=== PATIENT | female | born 1955 | race Caucasian/White ===

== ENCOUNTER 2017-05-02 14:02 | Emergency (ER) | payer OTHER ==
[~2017-05-02] VITALS: Ht 165.1 cm; Wt 68.8 kg
[2017-05-02] MEDS ORDERED: OSPH1TAB PO (14:21)
[2017-05-02 14:54] LABS: BASO % 0.4 % (0.0-1.0); EOS # 0.2 K/mm3 (0.0-0.50); EOS % 2.5 % (0.0-3.0); LARGE UNSTAINED CELL # 0.1 K/mm3 (0.0-0.4); LARGE UNSTAINED CELL % 1.7 % (0.0-4.0); LYMPH # 1.5 K/mm3 (1.5-4.5); LYMPH % 22.4 % (24.0-44.0); MEAN CORPUSCULAR HEMOGLOBIN 29.6 pg (27.0-33.0); MEAN CORPUSCULAR HGB CONC 33.2 g/dl (32.0-36.5); MEAN CORPUSCULAR VOLUME 89.3 fl (80.0-96.0); MONO # 0.4 K/mm3 (0.0-0.8); MONO % 5.6 % (0.0-5.0); NEUTROPHILS # 4.3 K/mm3 (1.8-7.7); NEUTROPHILS % 67.5 % (36.0-66.0); PLATELET COUNT, AUTOMATED 251 k/mm3 (150-450); RED CELL DISTRIBUTION WIDTH 12.3 % (11.5-14.5); WHITE BLOOD COUNT 6.4 K/mm3 (4.0-10.0)
[2017-05-02 15:21] LABS: ANION GAP 5 MEQ/L (8-16); BLOOD UREA NITROGEN 14 MG/DL (7-18); CALCIUM LEVEL 8.7 MG/DL (8.8-10.2); CARBON DIOXIDE LEVEL 27 MEQ/L (21-32); CHLORIDE LEVEL 107 MEQ/L (98-107); CREATININE FOR GFR 0.82 MG/DL (0.55-1.02); GLOMERULAR FILTRATION RATE > 60.0 (>45); GLUCOSE, FASTING 103 MG/DL (80-110); POTASSIUM SERUM 4.3 MEQ/L (3.5-5.1); SODIUM LEVEL 139 MEQ/L (136-145)
[2017-05-02 15:22] LABS: ERYTHROCYTE SEDIMENTATION RATE 34 mm/hr (0-30)
[2017-05-02] MEDS ORDERED: DOXYCYCLINE HYCLATE 100 MG TAB PO ONE (15:30)
[2017-05-02 15:32] VITALS: BP 140/79
[2017-05-02] MEDS ORDERED: DOXY100C37 PO (15:32)
[2017-05-08 00:15] LABS: Lyme Disease IgG Ab 18 kDa Ban Absent (.); Lyme Disease IgG Ab 23 kDa Ban Absent (.); Lyme Disease IgG Ab 28 kDa Ban Absent (.); Lyme Disease IgG Ab 30 kDa Ban Present (.); Lyme Disease IgG Ab 39 kDa Ban Absent (.); Lyme Disease IgG Ab 41 kDa Ban Present (.); Lyme Disease IgG Ab 45 kDa Ban Absent (.); Lyme Disease IgG Ab 58 kDa Ban Absent (.); Lyme Disease IgG Ab 66 kDa Ban Absent (.); Lyme Disease IgG Ab 93 kDa Ban Absent (.); Lyme Disease IgG West Blot Int Negative (.); Lyme Disease IgM Ab 23 kDa Ban Absent (.); Lyme Disease IgM Ab 39 kDa Ban Absent (.); Lyme Disease IgM Ab 41 kDa Ban Present (.); Lyme Disease IgM Ab Quantitati 5.12 index (0.00-0.79); Lyme Disease IgM West Blot Int Negative (.)
== END 2017-05-02 15:45 | disposition home or self-care (01) ==
LOC: M ED 14:02
DX: A69.20 Lyme disease, unspecified (principal); Z87.891 Personal history of nicotine dependence

== ENCOUNTER → 2017-07-21 | Outpatient (REF) | payer OTHER ==
[~2017-07-21] MED LIST: DOXY100C37 PO; OSPH1TAB PO
[2017-07-25 00:06] LABS: Lyme Disease IgG Ab 18 kDa Ban Absent (.); Lyme Disease IgG Ab 23 kDa Ban Absent (.); Lyme Disease IgG Ab 28 kDa Ban Absent (.); Lyme Disease IgG Ab 30 kDa Ban Present (.); Lyme Disease IgG Ab 39 kDa Ban Absent (.); Lyme Disease IgG Ab 41 kDa Ban Present (.); Lyme Disease IgG Ab 45 kDa Ban Absent (.); Lyme Disease IgG Ab 58 kDa Ban Present (.); Lyme Disease IgG Ab 66 kDa Ban Absent (.); Lyme Disease IgG Ab 93 kDa Ban Absent (.); Lyme Disease IgG West Blot Int Negative (.); Lyme Disease IgG/IgM Antibodie <0.91 ISR (0.00-0.90); Lyme Disease IgM Ab 23 kDa Ban Present (.); Lyme Disease IgM Ab 39 kDa Ban Absent (.); Lyme Disease IgM Ab 41 kDa Ban Absent (.); Lyme Disease IgM West Blot Int Negative (.)
== END ==
LOC: M SFHCADAM 13:47
PROVIDERS: ATTEND Physician Assistant
DX: Z86.19 Personal history of other infectious and parasitic diseases (principal)

== ENCOUNTER 2018-05-31 18:10 | Emergency (ER) | payer MEDICARE, OTHER ==
[2018-05-31] MEDS: NS 1,000 ML IV (18:30)
[2018-05-31 18:56] LABS: BASO # 0.1 10^3/uL (0.0-0.2); BASO % 0.7 % (0.0-1.0); EOS # 0.1 10^3/uL (0.0-0.50); EOS % 1.7 % (0.0-3.0); HEMATOCRIT 36.8 % (36.0-47.0); HEMOGLOBIN 12.4 g/dl (12.0-15.5); IMMATURE GRANULOCYTE % 0.1 % (0-3.0); LYMPH # 2.7 10^3/uL (1.5-4.5); LYMPH % 38.3 % (24.0-44.0); MEAN CORPUSCULAR HEMOGLOBIN 30.1 pg (27.0-33.0); MEAN CORPUSCULAR HGB CONC 33.7 g/dl (32.0-36.5); MEAN CORPUSCULAR VOLUME 89.3 fl (80.0-96.0); MONO # 0.7 10^3/uL (0.0-0.8); NEUTROPHILS # 3.5 10^3/uL (1.8-7.7); NEUTROPHILS % 49.2 % (36.0-66.0); PLATELET COUNT, AUTOMATED 256 10^3/uL (150-450); RED BLOOD COUNT 4.12 10^6/uL (4.00-5.40); RED CELL DISTRIBUTION WIDTH 11.9 % (11.5-14.5); WHITE BLOOD COUNT 7.1 10^3/uL (4.0-10.0)
[2018-05-31 19:34] LABS: ALBUMIN 3.7 GM/DL (3.2-5.2); ALBUMIN/GLOBULIN RATIO 0.97 (1.00-1.93); ALKALINE PHOSPHATASE 57 U/L (45-117); ALT/SGPT 27 U/L (12-78); AMYLASE 46 U/L (25-115); ANION GAP 10 MEQ/L (8-16); AST/SGOT 19 U/L (7-37); BILIRUBIN,DIRECT 0.1 MG/DL (0.0-0.2); BILIRUBIN,TOTAL 0.4 MG/DL (0.2-1.0); BLOOD UREA NITROGEN 9 MG/DL (7-18); CALCIUM LEVEL 8.8 MG/DL (8.8-10.2); CARBON DIOXIDE LEVEL 26 MEQ/L (21-32); CHLORIDE LEVEL 109 MEQ/L (98-107); CK-MB VALUE MASS 1.5 NG/ML (<3.6); CPK CREATINE PHOSPHOKINASE 125 U/L (26-192); CREATININE FOR GFR 0.79 MG/DL (0.55-1.30); GLOMERULAR FILTRATION RATE > 60.0 (>45); GLUCOSE, FASTING 105 MG/DL (70-100); LIPASE 119 U/L (73-393); POTASSIUM SERUM 3.9 MEQ/L (3.5-5.1); SODIUM LEVEL 145 MEQ/L (136-145); TOTAL PROTEIN 7.5 GM/DL (6.4-8.2); TROPONIN I < 0.02 NG/ML (< 0.10)
[2018-05-31] MEDS ORDERED: ISOVUE-370 76% 100ML VIAL (Q9967) As Ordered (19:55)
[2018-05-31 20:54] LABS: KETONE, URINE AUTO RFX NEGATIVE (NEGATIVE); NITRITE, URINE AUTO RFX NEGATIVE (NEGATIVE); RBC, URINE AUTO RFX 1 /HPF (0-3); SPECIFIC GRAVITY UR AUTO RFX 1.016 (1.002-1.035); SQUAM EPITHELIAL CELL UR AURFX 0 /HPF (0-6); WBC, URINE AUTO RFX 6 /HPF (0-3)
[2018-05-31 20:55] LABS: LEUKOCYTE ESTERASE UR AUTO RFX 2+ (NEGATIVE)
== END 2018-05-31 21:23 | disposition home or self-care (01) ==
LOC: M ED 18:10
DX: R10.13 Epigastric pain (principal); R11.0 Nausea; Z87.891 Personal history of nicotine dependence
CPT/HCPCS: Q9967

== ENCOUNTER → 2019-08-10 | Outpatient (CLI) | payer MEDICARE, OTHER ==
--- NOTE | 2019-08-10 11:58 | REP ---
Left ribs for views: There is no rib fracture or other rib abnormality. PA chest: Comparison is 03/25/2007. There is no pneumothorax, hemothorax or pulmonary contusion. The lung ratliff are clear. Cardiac size is normal. The echo and mediastinum are unremarkable. There is mild scoliosis convex right at the thoracolumbar junction, unchanged. Impression: Essentially negative PA chest. Electronically Signed by Anival Sun MD 08/10/2019 11:48 A
== END ==
LOC: M ADAMS 09:28
PROVIDERS: ATTEND Physician Assistant Medical
DX: S20.212A Contusion of left front wall of thorax, initial encounter (principal); X58.XXXA Exposure to other specified factors, initial encounter; Y92.89 Other specified places as the place of occurrence of the external cause

== ENCOUNTER → 2019-12-27 | Outpatient (REF) | payer MEDICARE, OTHER ==
[2019-12-27 13:38] LABS: FOLLICLE STIMULATING HORMONE 52.2 mIU/mL
[2019-12-29 00:06] LABS: ANTINUCLEAR ANTIBODIES DIRECT Negative (Negative); TESTOSTERONE FREE (DIRECT) 0.9 pg/mL (0.0-4.2)
== END ==
LOC: M LABDRWAD 12:35
PROVIDERS: ATTEND Nurse Practitioner Family
DX: L65.9 Nonscarring hair loss, unspecified (principal); R53.83 Other fatigue

== ENCOUNTER → 2020-01-11 | Outpatient (REF) | payer MEDICARE, OTHER ==
[2020-01-11 19:29] LABS: ALT/SGPT 39 U/L (12-78); BILIRUBIN,TOTAL 0.2 MG/DL (0.2-1.0); BLOOD UREA NITROGEN 12 MG/DL (7-18); CALCIUM LEVEL 9.3 MG/DL (8.8-10.2); CARBON DIOXIDE LEVEL 29 MEQ/L (21-32); CHLORIDE LEVEL 105 MEQ/L (98-107); CHOLESTEROL LEVEL 253 MG/DL (<200); CHOLESTEROL RISK RATIO 4.773 (<5); CREATININE FOR GFR 0.74 MG/DL (0.55-1.30); FREE T4 1.06 NG/DL (0.76-1.46); GLOMERULAR FILTRATION RATE > 60.0 (>45); GLUCOSE, FASTING 86 MG/DL (70-100); HDL CHOLESTEROL 53 MG/DL (>40); LDL CHOLESTEROL 160 MG/DL (<100); NON-HDL-C 200 MG/DL; POTASSIUM SERUM 4.6 MEQ/L (3.5-5.1); SODIUM LEVEL 138 MEQ/L (136-145); TOTAL PROTEIN 7.9 GM/DL (6.4-8.2); TRIGLYCERIDES LEVEL 201 MG/DL (<150)
[2020-01-11 19:36] LABS: APPEARANCE, URINE CLEAR (CLEAR); BACTERIA, URINE AUTO NEGATIVE (NEGATIVE); BILIRUBIN, URINE AUTO NEGATIVE (NEGATIVE); BLOOD, URINE BLOOD NEGATIVE (NEGATIVE); COLOR, URINE STRAW (YELLOW); GLUCOSE, URINE (UA) AUTO NEGATIVE (NEGATIVE); KETONE, URINE AUTO NEGATIVE (NEGATIVE); LEUKOCYTE ESTERASE, URINE AUTO TRACE (NEGATIVE); MUCUS, URINE SMALL (NEGATIVE); NITRITE, URINE AUTO NEGATIVE (NEGATIVE); PROTEIN, URINE AUTO NEGATIVE (NEGATIVE); RBC, URINE AUTO 0 /HPF (0-3); SPECIFIC GRAVITY URINE AUTO 1.005 (1.002-1.035); SQUAMOUS EPITHELIAL CELL UR AU 0 /HPF (0-6); UROBILINOGEN, URINE AUTO 0.2 mg/dL (0.0-2.0); WBC, URINE AUTO 5 /HPF (0-3)
[2020-01-11 19:37] LABS: HEMATOCRIT 39.9 % (36.0-47.0); HEMOGLOBIN 13.1 g/dl (12.0-15.5); MEAN CORPUSCULAR HGB CONC 32.8 g/dl (32.0-36.5); MEAN CORPUSCULAR VOLUME 91.3 fl (80.0-96.0); PLATELET COUNT, AUTOMATED 200 10^3/uL (150-450); RED BLOOD COUNT 4.37 10^6/uL (4.00-5.40); WHITE BLOOD COUNT 6.2 10^3/uL (4.0-10.0)
[2020-01-11 20:06] LABS: FOLATE 21.8 NG/ML; TOTAL 25(OH) VITAMIN D 38.3 NG/ML (30.0-100.0); VITAMIN B12 LEVEL 873 PG/ML
== END ==
LOC: M SFHCADAM 15:59
PROVIDERS: ATTEND Physician Assistant
DX: M15.0 Primary generalized (osteo)arthritis (principal); M79.661 Pain in right lower leg; R39.15 Urgency of urination; L65.9 Nonscarring hair loss, unspecified; Z13.220 Encounter for screening for lipoid disorders; Z79.899 Other long term (current) drug therapy; Z23 Encounter for immunization
CPT/HCPCS: 80053; 80061; 81001; 82306; 82607; 82746; 84439; 84443; 85027; 87086; 90732; G0009; G0463

== ENCOUNTER → 2020-05-10 | Outpatient (CLI) | payer MEDICARE, OTHER ==
--- NOTE | 2020-05-10 10:48 | REP ---
REASON: Trauma weeks ago. No recent trauma. No priors. Moderate degenerative changes are seen throughout the hand and mild degenerative changes are seen throughout the wrist. There is no acute fracture. Electronically Signed by Estuardo Hong DO 05/10/2020 04:55 P
== END ==
LOC: M ADAMS 08:52
PROVIDERS: ATTEND Physician Assistant
DX: S60.222A Contusion of left hand, initial encounter (principal); W18.30XA Fall on same level, unspecified, initial encounter; Y92.9 Unspecified place or not applicable

== ENCOUNTER → 2021-07-17 | Outpatient (REF) | payer MEDICARE, OTHER ==
[~2021-07-17] MED LIST changes: -DOXY100C37 PO; +DOXY1CAP62 PO
[2021-07-17 13:59] LABS: HEMATOCRIT 37.4 % (36.0-47.0); MEAN CORPUSCULAR HEMOGLOBIN 30.1 pg (27.0-33.0); MEAN CORPUSCULAR HGB CONC 32.1 g/dl (32.0-36.5); MEAN CORPUSCULAR VOLUME 93.7 fl (80.0-96.0); PLATELET COUNT, AUTOMATED 258 10^3/uL (150-450); RED BLOOD COUNT 3.99 10^6/uL (4.00-5.40); WHITE BLOOD COUNT 5.7 10^3/uL (4.0-10.0)
[2021-07-17 14:32] LABS: ALT/SGPT 33 U/L (12-78); BILIRUBIN,TOTAL 0.3 MG/DL (0.2-1.0); BLOOD UREA NITROGEN 12 MG/DL (7-18); CALCIUM LEVEL 9.5 MG/DL (8.8-10.2); CARBON DIOXIDE LEVEL 28 MEQ/L (21-32); CHLORIDE LEVEL 109 MEQ/L (98-107); CREATININE FOR GFR 0.69 MG/DL (0.55-1.30); GLOMERULAR FILTRATION RATE > 60.0 (>45); GLUCOSE, FASTING 82 MG/DL (70-100); POTASSIUM SERUM 4.5 MEQ/L (3.5-5.1); SODIUM LEVEL 141 MEQ/L (136-145)
[2021-07-17 14:33] LABS: ALBUMIN 3.8 GM/DL (3.2-5.2); CHOLESTEROL LEVEL 220 MG/DL (<200); CHOLESTEROL RISK RATIO 3.188 (<5); FREE T4 0.92 NG/DL (0.76-1.46); HDL CHOLESTEROL 69 MG/DL (>40); LDL CHOLESTEROL 132 MG/DL (<100); NON-HDL-C 151 MG/DL; TOTAL PROTEIN 7.4 GM/DL (6.4-8.2); TRIGLYCERIDES LEVEL 94 MG/DL (<150)
[2021-07-17 14:34] LABS: TOTAL 25(OH) VITAMIN D 25.9 NG/ML (30.0-100.0)
== END ==
LOC: M SFHCADAM 07:52
PROVIDERS: ATTEND Physician Assistant
DX: E78.00 Pure hypercholesterolemia, unspecified (principal); E55.9 Vitamin D deficiency, unspecified; Z13.1 Encounter for screening for diabetes mellitus; M81.0 Age-related osteoporosis without current pathological fracture; L65.9 Nonscarring hair loss, unspecified; M13.0 Polyarthritis, unspecified

== ENCOUNTER → 2021-08-19 | Outpatient (CLI) | payer MEDICARE, OTHER ==
--- NOTE | 2021-08-19 16:50 | REP ---
INDICATION: PAIN. COMPARISON: Four views 04/25/2015 TECHNIQUE: Four views FINDINGS: Once again, patient status post ORIF with a distal tibial cancellous screw status quo. There is no significant change in appearance of the mortise. There is no evidence of an acute fracture, dislocation, or subluxation. Plantar and retrocalcaneal heel spurs are identified. IMPRESSION: Chronic changes <Electronically signed by Estuardo Hong > 08/19/21 [id number]
== END ==
LOC: M WUC 15:02
PROVIDERS: ATTEND Physician Assistant
DX: M25.571 Pain in right ankle and joints of right foot (principal)

== ENCOUNTER → 2021-12-11 | Outpatient (CLI) | payer MEDICARE, OTHER ==
[~2021-12-11] MED LIST changes: +DOXY-443 PO; -DOXY1CAP62 PO
== END ==
LOC: M WUC 13:01
PROVIDERS: ATTEND Physician Assistant
DX: S40.012A Contusion of left shoulder, initial encounter (principal); S40.022A Contusion of left upper arm, initial encounter; X58.XXXA Exposure to other specified factors, initial encounter; Y92.89 Other specified places as the place of occurrence of the external cause

== ENCOUNTER → 2022-05-07 | Outpatient (REF) | payer MEDICARE, OTHER ==
[2022-05-07 12:40] LABS: HEMOGLOBIN 12.6 g/dl (12.0-15.5); MEAN CORPUSCULAR HEMOGLOBIN 30.5 pg (27.0-33.0); MEAN CORPUSCULAR HGB CONC 32.3 g/dl (32.0-36.5); MEAN CORPUSCULAR VOLUME 94.4 fl (80.0-96.0); PLATELET COUNT, AUTOMATED 260 10^3/uL (150-450); RED BLOOD COUNT 4.13 10^6/uL (4.00-5.40); WHITE BLOOD COUNT 6.4 10^3/uL (4.0-10.0)
[2022-05-07 13:59] LABS: ALBUMIN 3.6 GM/DL (3.2-5.2); ALT/SGPT 37 U/L (12-78); BILIRUBIN,TOTAL 0.3 MG/DL (0.2-1.0); BLOOD UREA NITROGEN 11 MG/DL (7-18); CALCIUM LEVEL 8.9 MG/DL (8.8-10.2); CARBON DIOXIDE LEVEL 27 MEQ/L (21-32); CHLORIDE LEVEL 107 MEQ/L (98-107); CHOLESTEROL LEVEL 244 MG/DL (<200); CHOLESTEROL RISK RATIO 3.812 (<5); CREATININE FOR GFR 0.75 MG/DL (0.55-1.30); FERRITIN 62 NG/ML (8-252); FOLATE 9.9 NG/ML; FREE T4 0.99 NG/DL (0.76-1.46); GLOMERULAR FILTRATION RATE > 60.0 (>45); GLUCOSE, FASTING 84 MG/DL (70-100); HDL CHOLESTEROL 64 MG/DL (>40); IRON (FE) 67 UG/DL (50-170); LDL CHOLESTEROL 158 MG/DL (<100); NON-HDL-C 180 MG/DL; POTASSIUM SERUM 4.8 MEQ/L (3.5-5.1); RHEUMATOID FACTOR QUANT < 10.0 IU/ML (<15.0); SODIUM LEVEL 139 MEQ/L (136-145); TOTAL PROTEIN 7.2 GM/DL (6.4-8.2); TRIGLYCERIDES LEVEL 109 MG/DL (<150); VITAMIN B12 LEVEL 454 PG/ML
[2022-05-08 23:12] LABS: ANA (HEP2) Negative (.)
== END ==
LOC: M SFHCADAM 08:54
PROVIDERS: ATTEND Physician Assistant
DX: M81.0 Age-related osteoporosis without current pathological fracture (principal); E55.9 Vitamin D deficiency, unspecified; M15.0 Primary generalized (osteo)arthritis; E78.00 Pure hypercholesterolemia, unspecified; R53.82 Chronic fatigue, unspecified; K21.9 Gastro-esophageal reflux disease without esophagitis; R05.3 Chronic cough; D50.9 Iron deficiency anemia, unspecified

== ENCOUNTER → 2022-05-07 | Outpatient (CLI) | payer MEDICARE, OTHER | LOC: M ADAMS 09:08 | PROVIDERS: ATTEND Physician Assistant | DX: R05.3 Chronic cough (principal) ==

== ENCOUNTER 2022-12-13 14:51 | Inpatient (IN) | payer MEDICARE, OTHER ==
[~2022-12-13] VITALS: Ht 165.1 cm; Wt 68.9 kg
[2022-12-13] MEDS ORDERED: MORPHINE 4 MG/ML 1ML VIAL IV ONE ×2 (15:20→20:00)
[2022-12-13 15:41] LABS: BLOOD UREA NITROGEN 15 MG/DL (9-23); CALCIUM LEVEL 8.6 MG/DL (8.3-10.6); CARBON DIOXIDE LEVEL 26 MMOL/L (20-31); CHLORIDE LEVEL 107 MMOL/L (98-107); GLOMERULAR FILTRATION RATE > 60.0 (>45); GLUCOSE, FASTING 100 MG/DL (74-106); POTASSIUM SERUM 4.1 MMOL/L (3.5-5.1); SODIUM LEVEL 137 MMOL/L (136-145)
[2022-12-13 15:44] LABS: BASO % 0.5 % (0.0-1.0); EOS # 0.1 10^3/uL (0.0-0.5); EOS % 1.3 % (0.0-3.0); HEMATOCRIT 36.9 % (36.0-47.0); HEMOGLOBIN 11.9 g/dl (12.0-15.5); LYMPH # 1.7 10^3/uL (1.5-5.0); LYMPH % 20.5 % (24.0-44.0); MEAN CORPUSCULAR HGB CONC 32.2 g/dl (32.0-36.5); MEAN CORPUSCULAR VOLUME 92.9 fl (80.0-96.0); MONO # 0.6 10^3/uL (0.0-0.8); MONO % 7.3 % (2.0-8.0); NEUTROPHILS # 5.8 10^3/uL (1.5-8.5); PLATELET COUNT, AUTOMATED 246 10^3/uL (150-450); RED BLOOD COUNT 3.97 10^6/uL (4.00-5.40); WHITE BLOOD COUNT 8.3 10^3/uL (4.0-10.0)
[2022-12-13] MEDS ORDERED: RAMELTEON 8 MG TAB (ROZEREM) PO PRN (18:15)
[2022-12-13] MEDS ORDERED: LORATADINE 10 MG TAB PO PRN (18:45)
[2022-12-13] MEDS ORDERED: FLUTICASONE PROP 0.05% NASAL SPRAY 16 GM (FLONASE) NARES PRN (18:45)
[2022-12-13] MEDS ORDERED: ONDANSETRON 4MG 2ML VIAL IV PRN (18:45)
[2022-12-13] MEDS ORDERED: carisoprodoL 350 MG TAB PO PRN (18:45)
[2022-12-13] MEDS ORDERED: ACETAMINOPHEN TAB 650MG DOSE (2X325MG) PO PRN (18:45)
[2022-12-13] MEDS ORDERED: HOME MED LIST COMPLETE! XX SCH (18:50)
[2022-12-13] MEDS ORDERED: LORazepam 2 MG TAB PO PRN (19:25)
[2022-12-13 19:35] LABS: RSV AMPLIFICATION NEGATIVE (NEGATIVE)
[2022-12-13 21:04] VITALS: BP 158/91
[2022-12-13] MEDS: DOCUSATE SODIUM 100MG CAPSULE PO SCH (21:11)
[2022-12-13 21:13] VITALS: BP 158/85
[2022-12-13] MEDS: THIAMINE 100 MG TAB PO SCH (21:13)
[2022-12-13 23:43] VITALS: BP 158/85
[2022-12-14] VITALS (9 sets, daily range): BP systolic 106–140; BP diastolic 61–78
[2022-12-14] MEDS: MORPHINE 2 MG/ML 1ML VIAL IV PRN ×2 (06:22→11:20)
[2022-12-14 07:10] LABS: HEMATOCRIT 33.8 % (36.0-47.0); HEMOGLOBIN 11.1 g/dl (12.0-15.5); MEAN CORPUSCULAR HEMOGLOBIN 30.3 pg (27.0-33.0); MEAN CORPUSCULAR HGB CONC 32.8 g/dl (32.0-36.5); MEAN CORPUSCULAR VOLUME 92.3 fl (80.0-96.0); PLATELET COUNT, AUTOMATED 220 10^3/uL (150-450); RED BLOOD COUNT 3.66 10^6/uL (4.00-5.40); WHITE BLOOD COUNT 8.1 10^3/uL (4.0-10.0)
[2022-12-14 07:38] LABS: ALBUMIN 3.4 G/DL (3.2-5.2); ALKALINE PHOSPHATASE 54 U/L (46-116); ALT/SGPT 31 U/L (7.0-40); AST/SGOT 23 U/L (<34); BILIRUBIN,TOTAL 0.8 MG/DL (0.3-1.2); BLOOD UREA NITROGEN 13 MG/DL (9-23); CALCIUM LEVEL 8.3 MG/DL (8.3-10.6); CARBON DIOXIDE LEVEL 26 MMOL/L (20-31); CHLORIDE LEVEL 105 MMOL/L (98-107); CREATININE FOR GFR 0.69 MG/DL (0.55-1.30); GLOMERULAR FILTRATION RATE > 60.0 (>45); GLUCOSE, FASTING 108 MG/DL (74-106); MAGNESIUM LEVEL 1.9 MG/DL (1.8-2.4); POTASSIUM SERUM 4.2 MMOL/L (3.5-5.1); SODIUM LEVEL 136 MMOL/L (136-145); TOTAL PROTEIN 6.8 G/DL (5.7-8.2)
[2022-12-14 07:39] LABS: PERCENT SATURATION 15.9 % (13.2-45.0)
[2022-12-14 07:41] LABS: FERRITIN 88.9 NG/ML (7.3-270.7)
[2022-12-14 07:42] LABS: FOLATE 14.49 NG/ML (>5.4)
[2022-12-14 08:23] LABS: INR 0.99; PARTIAL THROMBOPLASTIN TIME 29.4 SECONDS (24.8-34.2); PROTHROMBIN TIME 13.3 SECONDS (12.5-14.5)
[2022-12-14] MEDS: FOLIC ACID 1MG TAB PO SCH (09:00)
[2022-12-14] MEDS: THIAMINE 100 MG TAB PO SCH ×2 (09:00→20:20)
[2022-12-14] MEDS: MULTIVITAMINS/MINERALS THERAP 1 TAB PO SCH (09:00)
[2022-12-14] MEDS: DOCUSATE SODIUM 100MG CAPSULE PO SCH ×2 (10:33→20:20)
[2022-12-14] MEDS ORDERED: ceFAZolin 2 GM/D5W 50 ML IV BAG As Ordered ONE (13:22)
[2022-12-14] MEDS ORDERED: ceFAZolin 2 GM/D5W 50 ML IV BAG IV ONE (14:24)
[2022-12-14] MEDS ORDERED: PHENYLephrine 500MCG 5ML (100MCG/ML) SYRINGE As Ordered ONE (15:39)
[2022-12-14] MEDS ORDERED: KETAMINE HCL 200MG/20ML VIAL As Ordered ONE (15:39)
[2022-12-14] MEDS ORDERED: LIDOCAINE 2% 100MG/5ML SDV (FOR ANES.) As Ordered ONE (15:39)
[2022-12-14] MEDS ORDERED: propofoL 500 MG/50 ML VIAL As Ordered ONE (15:39)
[2022-12-14] MEDS ORDERED: ACETAMINOPHEN 1000MG 100ML IV BAG As Ordered ONE (15:39)
[2022-12-14] MEDS ORDERED: CALCIUM CHLORIDE 10% 1 GM/10 ML SYR As Ordered ONE (15:39)
[2022-12-14] MEDS ORDERED: LR 1,000 ML IV SCH (15:50)
[2022-12-14] MEDS ORDERED: oxyCODONE 5MG TAB PO PRN ×2 (15:50→16:25)
[2022-12-14] MEDS ORDERED: HYDROMORPHONE HCL 0.5 MG/ 0.5 ML SYRINGE IV PRN (15:50)
[2022-12-14] MEDS ORDERED: ONDANSETRON 4MG 2ML VIAL IV PRN (15:50)
[2022-12-14] MEDS ORDERED: KETOROLAC 60MG 2ML VIAL As Ordered ONE (15:56)
[2022-12-14] MEDS ORDERED: ACETAMINOPHEN TAB 650MG DOSE (2X325MG) PO PRN (16:10)
[2022-12-14] MEDS ORDERED: MORPHINE 4 MG/ML 1ML VIAL IV PRN (16:10)
[2022-12-14] MEDS: fentaNYL 100 MCG/2 ML INJECTION IV PRN ×3 (16:17→16:27)
[2022-12-14] MEDS: oxyCODONE 5MG TAB PO PRN (16:29)
[2022-12-14] MEDS: ceFAZolin SOD 1 GM in D5W MINI-BAG PLUS 50 ML IV SCH (20:20)
[2022-12-14] MEDS: KETOROLAC 30 MG/ML 1ML VIAL IV SCH (22:04)
[2022-12-15] VITALS (12 sets, daily range): BP systolic 116–145; BP diastolic 61–67
[2022-12-15] MEDS: KETOROLAC 30 MG/ML 1ML VIAL IV SCH (04:00)
[2022-12-15] MEDS: ceFAZolin SOD 1 GM in D5W MINI-BAG PLUS 50 ML IV SCH ×2 (05:29→12:25)
[2022-12-15 06:11] LABS: HEMATOCRIT 24.4 % (36.0-47.0); MEAN CORPUSCULAR HEMOGLOBIN 30.9 pg (27.0-33.0); MEAN CORPUSCULAR HGB CONC 33.2 g/dl (32.0-36.5); MEAN CORPUSCULAR VOLUME 93.1 fl (80.0-96.0); PLATELET COUNT, AUTOMATED 185 10^3/uL (150-450); RED BLOOD COUNT 2.62 10^6/uL (4.00-5.40); WHITE BLOOD COUNT 8.7 10^3/uL (4.0-10.0)
[2022-12-15 06:16] LABS: HEMOGLOBIN 8.1 g/dl (12.0-15.5)
[2022-12-15 06:41] LABS: ALBUMIN 2.8 G/DL (3.2-5.2); ALKALINE PHOSPHATASE 41 U/L (46-116); ALT/SGPT 25 U/L (7.0-40); AST/SGOT 30 U/L (<34); BILIRUBIN,TOTAL 0.5 MG/DL (0.3-1.2); BLOOD UREA NITROGEN 19 MG/DL (9-23); CARBON DIOXIDE LEVEL 26 MMOL/L (20-31); CHLORIDE LEVEL 103 MMOL/L (98-107); CREATININE FOR GFR 0.93 MG/DL (0.55-1.30); GLOMERULAR FILTRATION RATE > 60.0 (>45); GLUCOSE, FASTING 148 MG/DL (74-106); POTASSIUM SERUM 4.6 MMOL/L (3.5-5.1); SODIUM LEVEL 136 MMOL/L (136-145); TOTAL PROTEIN 5.7 G/DL (5.7-8.2)
[2022-12-15] MEDS: MULTIVITAMINS/MINERALS THERAP 1 TAB PO SCH (08:06)
[2022-12-15] MEDS: DOCUSATE SODIUM 100MG CAPSULE PO SCH ×2 (08:07→21:26)
[2022-12-15] MEDS: oxyCODONE 5MG TAB PO PRN ×2 (08:07→14:08)
[2022-12-15] MEDS: THIAMINE 100 MG TAB PO SCH ×2 (08:07→21:26)
[2022-12-15] MEDS: FOLIC ACID 1MG TAB PO SCH (08:07)
[2022-12-15 10:38] LABS: HEMATOCRIT 24.3 % (36.0-47.0); MEAN CORPUSCULAR HEMOGLOBIN 30.8 pg (27.0-33.0); MEAN CORPUSCULAR HGB CONC 32.9 g/dl (32.0-36.5); MEAN CORPUSCULAR VOLUME 93.5 fl (80.0-96.0); PLATELET COUNT, AUTOMATED 193 10^3/uL (150-450); WHITE BLOOD COUNT 10.9 10^3/uL (4.0-10.0)
[2022-12-15] MEDS ORDERED: ENOXAPARIN 40MG/0.4ML SYRINGE (J1650 PER 10MG) SC SCH (16:00)
[2022-12-15 20:22] LABS: HEMATOCRIT 27.2 % (36.0-47.0); HEMOGLOBIN 9.1 g/dl (12.0-15.5); MEAN CORPUSCULAR HEMOGLOBIN 30.8 pg (27.0-33.0); MEAN CORPUSCULAR HGB CONC 33.5 g/dl (32.0-36.5); MEAN CORPUSCULAR VOLUME 92.2 fl (80.0-96.0); PLATELET COUNT, AUTOMATED 169 10^3/uL (150-450); RED BLOOD COUNT 2.95 10^6/uL (4.00-5.40); WHITE BLOOD COUNT 8.6 10^3/uL (4.0-10.0)
[2022-12-15] MEDS ORDERED: IBUPROFEN 600MG TAB PO PRN (22:00)
[2022-12-16] MEDS: oxyCODONE 5MG TAB PO PRN ×3 (00:42→11:10)
[2022-12-16 05:54] VITALS: BP_SYST 123; BP_SYST 124; BP_DIAS 62; BP_DIAS 64
[2022-12-16 05:56] LABS: HEMATOCRIT 25.6 % (36.0-47.0); HEMOGLOBIN 8.5 g/dl (12.0-15.5); MEAN CORPUSCULAR HEMOGLOBIN 30.7 pg (27.0-33.0); MEAN CORPUSCULAR HGB CONC 33.2 g/dl (32.0-36.5); MEAN CORPUSCULAR VOLUME 92.4 fl (80.0-96.0); PLATELET COUNT, AUTOMATED 157 10^3/uL (150-450); RED BLOOD COUNT 2.77 10^6/uL (4.00-5.40); WHITE BLOOD COUNT 8.6 10^3/uL (4.0-10.0)
[2022-12-16 06:00] VITALS: BP 124/62
[2022-12-16 06:45] LABS: ALBUMIN 2.7 G/DL (3.2-5.2); ALKALINE PHOSPHATASE 43 U/L (46-116); ALT/SGPT 19 U/L (7.0-40); AST/SGOT 41 U/L (<34); BILIRUBIN,TOTAL 0.5 MG/DL (0.3-1.2); BLOOD UREA NITROGEN 15 MG/DL (9-23); CALCIUM LEVEL 8.2 MG/DL (8.3-10.6); CARBON DIOXIDE LEVEL 28 MMOL/L (20-31); CHLORIDE LEVEL 101 MMOL/L (98-107); CREATININE FOR GFR 0.72 MG/DL (0.55-1.30); GLOMERULAR FILTRATION RATE > 60.0 (>45); GLUCOSE, FASTING 111 MG/DL (74-106); MAGNESIUM LEVEL 1.7 MG/DL (1.8-2.4); POTASSIUM SERUM 4.8 MMOL/L (3.5-5.1); SODIUM LEVEL 134 MMOL/L (136-145); TOTAL PROTEIN 5.6 G/DL (5.7-8.2)
[2022-12-16] MEDS ORDERED: MIRALAX *UNIT DOSE* 17GM PACKET PO SCH (09:00)
[2022-12-16] MEDS: FOLIC ACID 1MG TAB PO SCH (09:07)
[2022-12-16] MEDS: THIAMINE 100 MG TAB PO SCH (09:07)
[2022-12-16] MEDS: MULTIVITAMINS/MINERALS THERAP 1 TAB PO SCH (09:07)
[2022-12-16] MEDS: DOCUSATE SODIUM 100MG CAPSULE PO SCH (09:07)
[2022-12-16] MEDS ORDERED: MIRA1POW3 PO (11:18)
[2022-12-16] MEDS ORDERED: OXYC-517 PO (11:18)
[2022-12-16] MEDS ORDERED: IBUP-1022 PO (11:18)
[2022-12-16] MEDS ORDERED: SENN-52 PO (11:18)
[2022-12-16] MEDS ORDERED: ACET1TAB55 PO (11:18)
[2022-12-16] MEDS ORDERED: FOLI1TAB11 PO (11:18)
[2022-12-16] MEDS ORDERED: SENOKOT S TAB PO SCH (21:00)
== END 2022-12-16 13:55 | DRG 481 ==
LOC: M ED 14:51 → EDBD 14:51 → M ED INP 18:43 → M MS5PR 21:04 → M MSPAV 12-15 11:05
PROVIDERS: ADMIT Internal Medicine; ATTEND Family Medicine
PROC: 0QS606Z Reposition Right Upper Femur with Intramedullary Internal Fixation Device, Open Approach (ICD-10-PCS; principal; 2022-12-14 09:30)
PROC: 30233N1 Transfusion of Nonautologous Red Blood Cells into Peripheral Vein, Percutaneous Approach (ICD-10-PCS; 2022-12-15)
DX: S72.141A Displaced intertrochanteric fracture of right femur, initial encounter for closed fracture (principal); D62 Acute posthemorrhagic anemia; W00.0XXA Fall on same level due to ice and snow, initial encounter; Y93.89 Activity, other specified; Y92.9 Unspecified place or not applicable; Y99.8 Other external cause status; M81.0 Age-related osteoporosis without current pathological fracture; R32 Unspecified urinary incontinence; D50.9 Iron deficiency anemia, unspecified; I16.0 Hypertensive urgency; Z87.891 Personal history of nicotine dependence

== ENCOUNTER 2022-12-16 10:06 | Inpatient (IN) | payer MEDICARE, OTHER ==
[~2022-12-16] VITALS: Ht 162.6 cm; Wt 68.9 kg
[2022-12-16] MEDS ORDERED: MIRA1POW3 PO (11:18)
[2022-12-16] MEDS ORDERED: ACET1TAB55 PO (11:18)
[2022-12-16] MEDS ORDERED: OXYC-517 PO (11:18)
[2022-12-16] MEDS ORDERED: SENN-52 PO (11:18)
[2022-12-16] MEDS ORDERED: FOLI1TAB11 PO (11:18)
[2022-12-16] MEDS ORDERED: IBUP-1022 PO (11:18)
[2022-12-16 14:05] VITALS: BP 138/73
[2022-12-16] MEDS ORDERED: BISACODYL 10MG SUPP PR PRN (14:20)
[2022-12-16] MEDS ORDERED: ONDANSETRON 4MG TAB PO PRN (14:20)
[2022-12-16] MEDS ORDERED: RAMELTEON 8 MG TAB (ROZEREM) PO PRN (14:20)
[2022-12-16] MEDS ORDERED: HOME MED LIST COMPLETE! XX SCH (14:40)
[2022-12-16] MEDS ORDERED: PILL CUTTER 1 EACH XX PRN (14:45)
[2022-12-16] MEDS: oxyCODONE 5MG TAB PO PRN ×2 (17:26→22:27)
[2022-12-16] MEDS: ACETAMINOPHEN 500 MG TAB PO SCH ×2 (17:27→22:26)
[2022-12-16 20:00] VITALS: BP 128/58
[2022-12-16] MEDS: FLUTICASONE PROP 0.05% NASAL SPRAY 16 GM (FLONASE) NARES SCH (21:00)
[2022-12-16] MEDS ORDERED: LORATADINE 10 MG TAB PO SCH (21:00)
[2022-12-16] MEDS: SENNA 8.6 MG TAB (SENOKOT) PO SCH (22:26)
[2022-12-16] MEDS: DOCUSATE SODIUM 100MG CAPSULE PO SCH (22:26)
[2022-12-17] MEDS: oxyCODONE 5MG TAB PO PRN ×2 (05:32→10:34)
[2022-12-17 06:00] VITALS: BP 125/58
[2022-12-17 07:27] LABS: BASO % 0.4 % (0.0-1.0); EOS # 0.2 10^3/uL (0.0-0.5); EOS % 2.2 % (0.0-3.0); HEMATOCRIT 24.8 % (36.0-47.0); HEMOGLOBIN 8.3 g/dl (12.0-15.5); LYMPH # 1.2 10^3/uL (1.5-5.0); MEAN CORPUSCULAR HEMOGLOBIN 31.1 pg (27.0-33.0); MEAN CORPUSCULAR HGB CONC 33.5 g/dl (32.0-36.5); MEAN CORPUSCULAR VOLUME 92.9 fl (80.0-96.0); MONO # 0.8 10^3/uL (0.0-0.8); MONO % 10.3 % (2.0-8.0); NEUTROPHILS # 5.9 10^3/uL (1.5-8.5); NEUTROPHILS % 71.5 % (36.0-66.0); PLATELET COUNT, AUTOMATED 195 10^3/uL (150-450); RED BLOOD COUNT 2.67 10^6/uL (4.00-5.40); WHITE BLOOD COUNT 8.2 10^3/uL (4.0-10.0)
[2022-12-17 07:57] LABS: ALBUMIN 2.7 G/DL (3.2-5.2); ALKALINE PHOSPHATASE 53 U/L (46-116); ALT/SGPT 30 U/L (7.0-40); AST/SGOT 89 U/L (<34); BILIRUBIN,TOTAL 0.7 MG/DL (0.3-1.2); BLOOD UREA NITROGEN 12 MG/DL (9-23); CALCIUM LEVEL 8.2 MG/DL (8.3-10.6); CARBON DIOXIDE LEVEL 30 MMOL/L (20-31); CHLORIDE LEVEL 103 MMOL/L (98-107); GLOMERULAR FILTRATION RATE > 60.0 (>45); GLUCOSE, FASTING 92 MG/DL (74-106); POTASSIUM SERUM 3.9 MMOL/L (3.5-5.1); SODIUM LEVEL 136 MMOL/L (136-145); TOTAL PROTEIN 5.8 G/DL (5.7-8.2)
[2022-12-17] MEDS ORDERED: FERROUS GLUCONATE 324 MG TAB PO SCH (09:00)
[2022-12-17] MEDS ORDERED: PANTOPRAZOLE 40MG TAB (PROTONIX) PO SCH (09:00)
[2022-12-17] MEDS: FLUTICASONE PROP 0.05% NASAL SPRAY 16 GM (FLONASE) NARES SCH ×2 (09:00→20:26)
[2022-12-17] MEDS: DOCUSATE SODIUM 100MG CAPSULE PO SCH ×2 (09:04→21:00)
[2022-12-17] MEDS: MULTIVITAMINS/MINERALS THERAP 1 TAB PO SCH (09:04)
[2022-12-17] MEDS: FOLIC ACID 1MG TAB PO SCH (09:04)
[2022-12-17] MEDS: ACETAMINOPHEN 500 MG TAB PO SCH ×3 (09:04→20:25)
[2022-12-17] MEDS: LORATADINE 10 MG TAB PO SCH (09:05)
[2022-12-17] MEDS: THIAMINE 100 MG TAB PO SCH (09:05)
[2022-12-17] MEDS ORDERED: FLEET ENEMA PR ONE (11:55)
[2022-12-17] MEDS: BISACODYL 5MG TAB PO SCH (12:33)
[2022-12-17] MEDS: MAGNESIUM OXIDE 400MG TAB (MAG-OX) PO SCH ×2 (12:33→20:24)
[2022-12-17] MEDS: ENOXAPARIN 40MG/0.4ML SYRINGE (J1650 PER 10MG) SC SCH (12:34)
[2022-12-17 14:00] VITALS: BP 129/59
[2022-12-17] MEDS: PANTOPRAZOLE 40MG TAB (PROTONIX) PO SCH (20:25)
[2022-12-17 20:31] VITALS: BP 138/64
[2022-12-17] MEDS: SENNA 8.6 MG TAB (SENOKOT) PO SCH (21:00)
[2022-12-18] MEDS: oxyCODONE 5MG TAB PO PRN (01:42)
[2022-12-18 06:27] VITALS: BP 122/58
[2022-12-18] MEDS: BISACODYL 5MG TAB PO SCH (08:29)
[2022-12-18] MEDS: DOCUSATE SODIUM 100MG CAPSULE PO SCH ×2 (08:29→20:45)
[2022-12-18] MEDS: PANTOPRAZOLE 40MG TAB (PROTONIX) PO SCH ×2 (08:30→20:45)
[2022-12-18] MEDS: LORATADINE 10 MG TAB PO SCH (08:30)
[2022-12-18] MEDS: THIAMINE 100 MG TAB PO SCH (08:30)
[2022-12-18] MEDS: MULTIVITAMINS/MINERALS THERAP 1 TAB PO SCH (08:30)
[2022-12-18] MEDS: FLUTICASONE PROP 0.05% NASAL SPRAY 16 GM (FLONASE) NARES SCH ×2 (08:31→20:43)
[2022-12-18] MEDS: ACETAMINOPHEN 500 MG TAB PO SCH ×3 (08:31→20:46)
[2022-12-18] MEDS: MAGNESIUM OXIDE 400MG TAB (MAG-OX) PO SCH ×2 (08:31→20:45)
[2022-12-18] MEDS: ENOXAPARIN 40MG/0.4ML SYRINGE (J1650 PER 10MG) SC SCH (08:31)
[2022-12-18] MEDS: FOLIC ACID 1MG TAB PO SCH (08:32)
[2022-12-18 14:00] VITALS: BP 120/43
[2022-12-18 19:32] VITALS: BP 123/61
[2022-12-18] MEDS: SENNA 8.6 MG TAB (SENOKOT) PO SCH (20:45)
[2022-12-19 05:26] VITALS: BP 128/61
[2022-12-19 06:20] LABS: BASO % 0.6 % (0.0-1.0); EOS # 0.2 10^3/uL (0.0-0.5); EOS % 2.3 % (0.0-3.0); HEMOGLOBIN 8.2 g/dl (12.0-15.5); LYMPH # 2.1 10^3/uL (1.5-5.0); LYMPH % 29.9 % (24.0-44.0); MEAN CORPUSCULAR HEMOGLOBIN 30.9 pg (27.0-33.0); MEAN CORPUSCULAR HGB CONC 32.8 g/dl (32.0-36.5); MEAN CORPUSCULAR VOLUME 94.3 fl (80.0-96.0); MONO # 0.7 10^3/uL (0.0-0.8); NEUTROPHILS # 3.9 10^3/uL (1.5-8.5); NEUTROPHILS % 56.8 % (36.0-66.0); PLATELET COUNT, AUTOMATED 301 10^3/uL (150-450); RED BLOOD COUNT 2.65 10^6/uL (4.00-5.40); WHITE BLOOD COUNT 6.9 10^3/uL (4.0-10.0)
[2022-12-19 06:41] LABS: BLOOD UREA NITROGEN 14 MG/DL (9-23); CALCIUM LEVEL 8.6 MG/DL (8.3-10.6); CARBON DIOXIDE LEVEL 29 MMOL/L (20-31); CHLORIDE LEVEL 103 MMOL/L (98-107); CREATININE FOR GFR 0.63 MG/DL (0.55-1.30); GLOMERULAR FILTRATION RATE > 60.0 (>45); GLUCOSE, FASTING 93 MG/DL (74-106); SODIUM LEVEL 139 MMOL/L (136-145)
[2022-12-19] MEDS: ENOXAPARIN 40MG/0.4ML SYRINGE (J1650 PER 10MG) SC SCH (07:57)
[2022-12-19] MEDS: THIAMINE 100 MG TAB PO SCH (07:57)
[2022-12-19] MEDS: BISACODYL 5MG TAB PO SCH (07:57)
[2022-12-19] MEDS: DOCUSATE SODIUM 100MG CAPSULE PO SCH ×2 (07:58→20:53)
[2022-12-19] MEDS: FOLIC ACID 1MG TAB PO SCH (07:58)
[2022-12-19] MEDS: MAGNESIUM OXIDE 400MG TAB (MAG-OX) PO SCH ×2 (07:58→20:52)
[2022-12-19] MEDS: LORATADINE 10 MG TAB PO SCH (07:58)
[2022-12-19] MEDS: MULTIVITAMINS/MINERALS THERAP 1 TAB PO SCH (07:58)
[2022-12-19] MEDS: PANTOPRAZOLE 40MG TAB (PROTONIX) PO SCH ×2 (07:59→20:53)
[2022-12-19] MEDS: ACETAMINOPHEN 500 MG TAB PO SCH ×3 (07:59→20:53)
[2022-12-19] MEDS: FERROUS GLUCONATE 324 MG TAB PO SCH (08:00)
[2022-12-19] MEDS: FLUTICASONE PROP 0.05% NASAL SPRAY 16 GM (FLONASE) NARES SCH ×3 (08:00→21:00)
[2022-12-19] MEDS ORDERED: GABAPENTIN 100 MG CAP PO ONE (09:30)
[2022-12-19] MEDS: DICLOFENAC EPOLAMINE 1.3% PATCH TOP SCH ×2 (11:37→20:54)
[2022-12-19 14:00] VITALS: BP 163/70
[2022-12-19] MEDS: GABAPENTIN 100 MG CAP PO SCH ×2 (15:56→20:53)
[2022-12-19 20:00] VITALS: BP 131/60
[2022-12-19] MEDS: SENNA 8.6 MG TAB (SENOKOT) PO SCH (20:53)
[2022-12-20 05:58] VITALS: BP 145/67
[2022-12-20] MEDS: MULTIVITAMINS/MINERALS THERAP 1 TAB PO SCH (08:22)
[2022-12-20] MEDS: ENOXAPARIN 40MG/0.4ML SYRINGE (J1650 PER 10MG) SC SCH (08:22)
[2022-12-20] MEDS: ACETAMINOPHEN 500 MG TAB PO SCH ×3 (08:22→20:10)
[2022-12-20] MEDS: DOCUSATE SODIUM 100MG CAPSULE PO SCH ×2 (08:22→20:09)
[2022-12-20] MEDS: BISACODYL 5MG TAB PO SCH (08:23)
[2022-12-20] MEDS: THIAMINE 100 MG TAB PO SCH (08:23)
[2022-12-20] MEDS: GABAPENTIN 100 MG CAP PO SCH ×3 (08:23→21:00)
[2022-12-20] MEDS: FOLIC ACID 1MG TAB PO SCH (08:23)
[2022-12-20] MEDS: PANTOPRAZOLE 40MG TAB (PROTONIX) PO SCH ×2 (08:23→20:09)
[2022-12-20] MEDS: LORATADINE 10 MG TAB PO SCH (08:23)
[2022-12-20] MEDS: FLUTICASONE PROP 0.05% NASAL SPRAY 16 GM (FLONASE) NARES SCH ×2 (08:23→21:00)
[2022-12-20] MEDS: DICLOFENAC EPOLAMINE 1.3% PATCH TOP SCH ×2 (08:23→20:10)
[2022-12-20] MEDS: MAGNESIUM OXIDE 400MG TAB (MAG-OX) PO SCH ×2 (08:23→20:09)
[2022-12-20 14:00] VITALS: BP 136/64
[2022-12-20 20:00] VITALS: BP 138/63
[2022-12-20] MEDS: SENNA 8.6 MG TAB (SENOKOT) PO SCH (20:09)
[2022-12-21 06:00] VITALS: BP 147/56
[2022-12-21] MEDS: ACETAMINOPHEN 500 MG TAB PO SCH ×3 (06:57→20:03)
[2022-12-21] MEDS: DOCUSATE SODIUM 100MG CAPSULE PO SCH ×2 (09:00→21:00)
[2022-12-21] MEDS: LORATADINE 10 MG TAB PO SCH (09:00)
[2022-12-21] MEDS: FLUTICASONE PROP 0.05% NASAL SPRAY 16 GM (FLONASE) NARES SCH ×2 (09:00→21:00)
[2022-12-21] MEDS: GABAPENTIN 100 MG CAP PO SCH ×3 (09:00→21:00)
[2022-12-21] MEDS: FOLIC ACID 1MG TAB PO SCH (09:06)
[2022-12-21] MEDS: MULTIVITAMINS/MINERALS THERAP 1 TAB PO SCH (09:06)
[2022-12-21] MEDS: THIAMINE 100 MG TAB PO SCH (09:06)
[2022-12-21] MEDS: FERROUS GLUCONATE 324 MG TAB PO SCH (09:06)
[2022-12-21] MEDS: PANTOPRAZOLE 40MG TAB (PROTONIX) PO SCH ×2 (09:07→20:02)
[2022-12-21] MEDS: DICLOFENAC EPOLAMINE 1.3% PATCH TOP SCH ×2 (09:07→20:03)
[2022-12-21] MEDS: MAGNESIUM OXIDE 400MG TAB (MAG-OX) PO SCH ×2 (09:07→20:02)
[2022-12-21] MEDS: BISACODYL 5MG TAB PO SCH (09:07)
[2022-12-21] MEDS: ENOXAPARIN 40MG/0.4ML SYRINGE (J1650 PER 10MG) SC SCH (09:07)
[2022-12-21 14:00] VITALS: BP 122/58
[2022-12-21 20:22] VITALS: BP 115/56
[2022-12-21] MEDS: SENNA 8.6 MG TAB (SENOKOT) PO SCH (21:00)
[2022-12-22 05:36] VITALS: BP 130/62
[2022-12-22 06:38] LABS: BASO % 0.2 % (0.0-1.0); EOS # 0.1 10^3/uL (0.0-0.5); EOS % 1.5 % (0.0-3.0); HEMATOCRIT 25.5 % (36.0-47.0); HEMOGLOBIN 8.2 g/dl (12.0-15.5); LYMPH # 1.1 10^3/uL (1.5-5.0); LYMPH % 12.2 % (24.0-44.0); MEAN CORPUSCULAR HEMOGLOBIN 30.8 pg (27.0-33.0); MEAN CORPUSCULAR HGB CONC 32.2 g/dl (32.0-36.5); MEAN CORPUSCULAR VOLUME 95.9 fl (80.0-96.0); MONO # 0.7 10^3/uL (0.0-0.8); NEUTROPHILS # 7.2 10^3/uL (1.5-8.5); NEUTROPHILS % 77.6 % (36.0-66.0); PLATELET COUNT, AUTOMATED 357 10^3/uL (150-450); RED BLOOD COUNT 2.66 10^6/uL (4.00-5.40); WHITE BLOOD COUNT 9.3 10^3/uL (4.0-10.0)
[2022-12-22 06:45] LABS: BLOOD UREA NITROGEN 13 MG/DL (9-23); CALCIUM LEVEL 8.6 MG/DL (8.3-10.6); CARBON DIOXIDE LEVEL 27 MMOL/L (20-31); CHLORIDE LEVEL 107 MMOL/L (98-107); CREATININE FOR GFR 0.61 MG/DL (0.55-1.30); GLOMERULAR FILTRATION RATE > 60.0 (>45); GLUCOSE, FASTING 86 MG/DL (74-106); POTASSIUM SERUM 4.3 MMOL/L (3.5-5.1); SODIUM LEVEL 140 MMOL/L (136-145)
[2022-12-22] MEDS: DOCUSATE SODIUM 100MG CAPSULE PO SCH ×2 (08:45→21:00)
[2022-12-22] MEDS: GABAPENTIN 100 MG CAP PO SCH ×3 (08:46→21:00)
[2022-12-22] MEDS: FLUTICASONE PROP 0.05% NASAL SPRAY 16 GM (FLONASE) NARES SCH ×2 (08:46→21:00)
[2022-12-22] MEDS: LORATADINE 10 MG TAB PO SCH (09:00)
[2022-12-22] MEDS: BISACODYL 5MG TAB PO SCH (09:00)
[2022-12-22] MEDS: FOLIC ACID 1MG TAB PO SCH (09:12)
[2022-12-22] MEDS: ACETAMINOPHEN 500 MG TAB PO SCH ×3 (09:12→20:30)
[2022-12-22] MEDS: MULTIVITAMINS/MINERALS THERAP 1 TAB PO SCH (09:12)
[2022-12-22] MEDS: PANTOPRAZOLE 40MG TAB (PROTONIX) PO SCH ×2 (09:12→20:31)
[2022-12-22] MEDS: DICLOFENAC EPOLAMINE 1.3% PATCH TOP SCH ×2 (09:12→20:31)
[2022-12-22] MEDS: MAGNESIUM OXIDE 400MG TAB (MAG-OX) PO SCH ×2 (09:12→20:31)
[2022-12-22] MEDS: THIAMINE 100 MG TAB PO SCH (09:12)
[2022-12-22] MEDS: ENOXAPARIN 40MG/0.4ML SYRINGE (J1650 PER 10MG) SC SCH (09:13)
[2022-12-22 14:00] VITALS: BP 120/58
[2022-12-22 17:38] LABS: HEPATITIS B SURFACE ANTIGEN NEGATIVE (NEGATIVE)
[2022-12-22 17:59] LABS: HEPATITIS B CORE ANTIBODY IGM NEGATIVE (NEGATIVE)
[2022-12-22 19:40] VITALS: BP 125/58
[2022-12-22] MEDS: SENNA 8.6 MG TAB (SENOKOT) PO SCH (21:00)
[2022-12-23 06:08] VITALS: BP 123/62
[2022-12-23] MEDS: ENOXAPARIN 40MG/0.4ML SYRINGE (J1650 PER 10MG) SC SCH (08:59)
[2022-12-23] MEDS: ACETAMINOPHEN 500 MG TAB PO SCH ×3 (08:59→20:28)
[2022-12-23] MEDS: MULTIVITAMINS/MINERALS THERAP 1 TAB PO SCH (08:59)
[2022-12-23] MEDS: FERROUS GLUCONATE 324 MG TAB PO SCH (09:00)
[2022-12-23] MEDS: MAGNESIUM OXIDE 400MG TAB (MAG-OX) PO SCH ×2 (09:00→20:28)
[2022-12-23] MEDS: GABAPENTIN 100 MG CAP PO SCH ×3 (09:00→19:14)
[2022-12-23] MEDS: FLUTICASONE PROP 0.05% NASAL SPRAY 16 GM (FLONASE) NARES SCH ×2 (09:00→19:15)
[2022-12-23] MEDS: DICLOFENAC EPOLAMINE 1.3% PATCH TOP SCH ×2 (09:00→20:28)
[2022-12-23] MEDS: LORATADINE 10 MG TAB PO SCH (09:00)
[2022-12-23] MEDS: FOLIC ACID 1MG TAB PO SCH (09:00)
[2022-12-23] MEDS: BISACODYL 5MG TAB PO SCH (09:00)
[2022-12-23] MEDS: PANTOPRAZOLE 40MG TAB (PROTONIX) PO SCH ×2 (09:00→20:28)
[2022-12-23] MEDS: DOCUSATE SODIUM 100MG CAPSULE PO SCH ×3 (09:00→20:28)
[2022-12-23] MEDS: THIAMINE 100 MG TAB PO SCH (09:01)
[2022-12-23 14:00] VITALS: BP 132/60
[2022-12-23] MEDS: SENNA 8.6 MG TAB (SENOKOT) PO SCH (19:14)
[2022-12-23 20:00] VITALS: BP 125/58
[2022-12-24 06:00] VITALS: BP 135/62
[2022-12-24] MEDS: PANTOPRAZOLE 40MG TAB (PROTONIX) PO SCH (08:54)
[2022-12-24] MEDS: MULTIVITAMINS/MINERALS THERAP 1 TAB PO SCH (08:54)
[2022-12-24] MEDS: THIAMINE 100 MG TAB PO SCH (08:54)
[2022-12-24] MEDS: DOCUSATE SODIUM 100MG CAPSULE PO SCH (08:54)
[2022-12-24] MEDS: MAGNESIUM OXIDE 400MG TAB (MAG-OX) PO SCH (08:54)
[2022-12-24] MEDS: ACETAMINOPHEN 500 MG TAB PO SCH (08:55)
[2022-12-24] MEDS: BISACODYL 5MG TAB PO SCH (08:55)
[2022-12-24] MEDS: FOLIC ACID 1MG TAB PO SCH (08:55)
[2022-12-24] MEDS: ENOXAPARIN 40MG/0.4ML SYRINGE (J1650 PER 10MG) SC SCH (08:55)
[2022-12-24] MEDS: LORATADINE 10 MG TAB PO SCH (08:55)
[2022-12-24] MEDS: GABAPENTIN 100 MG CAP PO SCH (08:56)
[2022-12-24] MEDS: FLUTICASONE PROP 0.05% NASAL SPRAY 16 GM (FLONASE) NARES SCH (08:56)
[2022-12-24] MEDS: DICLOFENAC EPOLAMINE 1.3% PATCH TOP SCH (08:57)
[2022-12-24] MEDS ORDERED: THIA100TA PO (10:21)
[2022-12-24] MEDS ORDERED: MAGN400T2 PO (10:21)
[2022-12-24] MEDS ORDERED: FOLI1TAB11 PO (10:21)
== END 2022-12-24 13:17 | disposition home or self-care (01) | DRG 560 ==
LOC: M PM&R 14:05
PROVIDERS: ADMIT Physical Medicine & Rehabilitation; ATTEND Physical Medicine & Rehabilitation
DX: S72.114D Nondisplaced fracture of greater trochanter of right femur, subsequent encounter for closed fracture with routine healing (principal); D62 Acute posthemorrhagic anemia; I10 Essential (primary) hypertension; K21.9 Gastro-esophageal reflux disease without esophagitis; M19.90 Unspecified osteoarthritis, unspecified site; R32 Unspecified urinary incontinence; R26.89 Other abnormalities of gait and mobility; R06.02 Shortness of breath; M81.0 Age-related osteoporosis without current pathological fracture; D50.9 Iron deficiency anemia, unspecified; R74.01 Elevation of levels of liver transaminase levels; Z74.09 Other reduced mobility; Z74.1 Need for assistance with personal care; K59.00 Constipation, unspecified; Z87.891 Personal history of nicotine dependence; Z79.899 Other long term (current) drug therapy; Z88.8 Allergy status to other drugs, medicaments and biological substances

== ENCOUNTER → 2023-01-05 | Outpatient (CLI) | payer MEDICARE, OTHER ==
[~2023-01-05] MED LIST changes: +ACET1TAB55 PO; +FOLI1TAB11 PO; +IBUP-1022 PO; +MAGN400T2 PO; +MIRA1POW3 PO; +OXYC-517 PO; +SENN-52 PO; +THIA100TA PO
== END ==
LOC: M SOG 15:24
PROVIDERS: ATTEND Physician Assistant
DX: M25.511 Pain in right shoulder (principal); M25.551 Pain in right hip

== ENCOUNTER → 2023-01-06 | Outpatient (REF) | payer MEDICARE, OTHER ==
[2023-01-06 17:41] LABS: BASO % 0.5 % (0.0-1.0); EOS # 0.2 10^3/uL (0.0-0.5); EOS % 2.1 % (0.0-3.0); HEMATOCRIT 35.1 % (36.0-47.0); LYMPH # 2.2 10^3/uL (1.5-5.0); LYMPH % 26.2 % (24.0-44.0); MEAN CORPUSCULAR HEMOGLOBIN 30.4 pg (27.0-33.0); MEAN CORPUSCULAR HGB CONC 31.3 g/dl (32.0-36.5); MONO # 0.7 10^3/uL (0.0-0.8); MONO % 8.1 % (2.0-8.0); NEUTROPHILS # 5.4 10^3/uL (1.5-8.5); NEUTROPHILS % 62.7 % (36.0-66.0); PLATELET COUNT, AUTOMATED 436 10^3/uL (150-450); RED BLOOD COUNT 3.62 10^6/uL (4.00-5.40); WHITE BLOOD COUNT 8.5 10^3/uL (4.0-10.0)
== END ==
LOC: M LABDRWAD 16:02
PROVIDERS: ATTEND Physician Assistant
DX: D64.9 Anemia, unspecified (principal)

== ENCOUNTER → 2023-02-16 | Outpatient (CLI) | payer MEDICARE, OTHER | LOC: M SOG 11:40 | PROVIDERS: ATTEND Physician Assistant | DX: S72.141D Displaced intertrochanteric fracture of right femur, subsequent encounter for closed fracture with routine healing (principal); W18.30XD Fall on same level, unspecified, subsequent encounter; Y92.009 Unspecified place in unspecified non-institutional (private) residence as the place of occurrence of the external cause ==

== ENCOUNTER → 2023-03-18 | Outpatient (REF) | payer MEDICARE, OTHER ==
[2023-03-18 14:07] LABS: CALCIUM LEVEL 9.1 MG/DL (8.3-10.6)
[2023-03-18 14:10] LABS: TOTAL 25(OH) VITAMIN D 45.2 NG/ML (20.0-100.0)
== END ==
LOC: M LABDRWAD 12:42
PROVIDERS: ATTEND Internal Medicine Endocrinology, Diabetes & Metabolism
DX: M81.0 Age-related osteoporosis without current pathological fracture (principal)

== ENCOUNTER → 2023-04-07 | Outpatient (CLI) | payer MEDICARE, OTHER | LOC: M SOG 09:57 | PROVIDERS: ATTEND Orthopaedic Surgery Hand Surgery | DX: S72.141D Displaced intertrochanteric fracture of right femur, subsequent encounter for closed fracture with routine healing (principal); W18.30XD Fall on same level, unspecified, subsequent encounter ==

== ENCOUNTER → 2023-04-27 | Outpatient (REF) | payer MEDICARE, OTHER | LOC: M LABDRWAD 12:21 | PROVIDERS: ATTEND Internal Medicine Endocrinology, Diabetes & Metabolism | DX: E58 Dietary calcium deficiency (principal) ==

== ENCOUNTER → 2023-06-01 | Outpatient (REF) | payer MEDICARE, OTHER ==
[2023-06-01 13:29] LABS: HEMATOCRIT 39.1 % (36.0-47.0); HEMOGLOBIN 12.5 g/dl (12.0-15.5); MEAN CORPUSCULAR HEMOGLOBIN 29.8 pg (27.0-33.0); MEAN CORPUSCULAR VOLUME 93.1 fl (80.0-96.0); PLATELET COUNT, AUTOMATED 285 10^3/uL (150-450); WHITE BLOOD COUNT 7.4 10^3/uL (4.0-10.0)
[2023-06-01 13:53] LABS: CHOLESTEROL RISK RATIO 3.27 (<5); HDL CHOLESTEROL 69.4 MG/DL (>40); NON-HDL-C 157.6 MG/DL
== END ==
LOC: M SFHCADAM 07:38
PROVIDERS: ATTEND Physician Assistant
DX: D64.89 Other specified anemias (principal); K21.9 Gastro-esophageal reflux disease without esophagitis; M81.0 Age-related osteoporosis without current pathological fracture; E55.9 Vitamin D deficiency, unspecified; Z79.899 Other long term (current) drug therapy

== ENCOUNTER → 2023-06-01 | Outpatient (REF) | payer MEDICARE, OTHER ==
[2023-06-01 13:48] LABS: CALCIUM LEVEL 9.1 MG/DL (8.3-10.6)
[2023-06-01 13:53] LABS: TOTAL 25(OH) VITAMIN D 47.6 NG/ML (20.0-100.0)
== END ==
LOC: M LABDRWAD 12:23
PROVIDERS: ATTEND Nurse Practitioner Family
DX: M81.0 Age-related osteoporosis without current pathological fracture (principal); E55.9 Vitamin D deficiency, unspecified

== ENCOUNTER 2023-06-05 17:00 | Emergency (ER) | payer MEDICARE, OTHER ==
[~2023-06-05] VITALS: Ht 165.1 cm; Wt 66.4 kg
[2023-06-05 17:07] VITALS: TEMP 97.6
[2023-06-05] MEDS ORDERED: ESSETAB4 PO (17:52)
[2023-06-05] MEDS ORDERED: ROMO210S SQ (17:52)
[2023-06-05 18:23] LABS: BASO % 0.6 % (0.0-1.0); EOS # 0.1 10^3/uL (0.0-0.5); EOS % 1.9 % (0.0-3.0); HEMATOCRIT 39.3 % (36.0-47.0); LYMPH # 2.2 10^3/uL (1.5-5.0); LYMPH % 32.3 % (24.0-44.0); MEAN CORPUSCULAR HEMOGLOBIN 30.4 pg (27.0-33.0); MEAN CORPUSCULAR HGB CONC 33.1 g/dl (32.0-36.5); MONO # 0.5 10^3/uL (0.0-0.8); MONO % 7.7 % (2.0-8.0); NEUTROPHILS # 3.9 10^3/uL (1.5-8.5); NEUTROPHILS % 57.4 % (36.0-66.0); PLATELET COUNT, AUTOMATED 279 10^3/uL (150-450); RED BLOOD COUNT 4.27 10^6/uL (4.00-5.40); WHITE BLOOD COUNT 6.8 10^3/uL (4.0-10.0)
[2023-06-05 18:29] LABS: BLOOD UREA NITROGEN 16 MG/DL (9-23); CARBON DIOXIDE LEVEL 26 MMOL/L (20-31); CHLORIDE LEVEL 105 MMOL/L (98-107); CREATININE FOR GFR 0.76 MG/DL (0.55-1.30); GLOMERULAR FILTRATION RATE > 60.0 (>39); GLUCOSE, FASTING 92 MG/DL (74-106); POTASSIUM SERUM 4.2 MMOL/L (3.5-5.1); SODIUM LEVEL 139 MMOL/L (136-145)
[2023-06-05] MEDS ORDERED: ISOVUE-370 76% 100ML VIAL As Ordered ONE (18:49)
[2023-06-05 19:45] VITALS: BP 154/73; O2SAT 96
== END 2023-06-05 20:15 | disposition home or self-care (01) ==
LOC: M ED 19:11
DX: R51.9 Headache, unspecified (principal); I10 Essential (primary) hypertension; M81.0 Age-related osteoporosis without current pathological fracture; Z88.8 Allergy status to other drugs, medicaments and biological substances
CPT/HCPCS: 36415; 70450; 70496; 70498; 80048; 85025; 99284; Q9967

== ENCOUNTER → 2024-01-19 | Outpatient (CLI) | payer MEDICARE, OTHER ==
[~2024-01-19] MED LIST changes: +ESSETAB4 PO; -MIRA1POW3 PO; +MIRA33506 PO; +ROMO210S SQ
== END ==
LOC: M RAD 13:22
PROVIDERS: ATTEND Physician Assistant
DX: Z87.891 Personal history of nicotine dependence (principal)

== ENCOUNTER → 2024-02-12 | Outpatient (CLI) | payer MEDICARE, OTHER | LOC: M SOG 15:26 | PROVIDERS: ATTEND Physician Assistant | DX: S72.141D Displaced intertrochanteric fracture of right femur, subsequent encounter for closed fracture with routine healing (principal); Y93.9 Activity, unspecified; Y92.9 Unspecified place or not applicable ==

== ENCOUNTER → 2024-03-01 | Outpatient (REF) | payer MEDICARE, OTHER | LOC: M LAB REF 16:30 | PROVIDERS: ATTEND Internal Medicine | DX: D51.9 Vitamin B12 deficiency anemia, unspecified (principal) ==

== ENCOUNTER → 2024-03-23 | Outpatient (CLI) | payer MEDICARE, OTHER ==
[~2024-03-23] MED LIST changes: +DOXY-323 PO; -DOXY-443 PO
== END ==
LOC: M RAD 07:57
PROVIDERS: ATTEND Internal Medicine
DX: F10.20 Alcohol dependence, uncomplicated (principal)

== ENCOUNTER → 2024-08-12 | Outpatient (CLI) | payer MEDICARE, OTHER ==
[~2024-08-12] MED LIST changes: -DOXY-323 PO; +DOXY-441 PO
== END ==
LOC: M RAD 11:05
PROVIDERS: ATTEND Physician Assistant
DX: R91.1 Solitary pulmonary nodule (principal)

== ENCOUNTER → 2024-11-15 | Outpatient (CLI) | payer MEDICARE, OTHER | LOC: M SOG 07:50 | PROVIDERS: ATTEND Physician Assistant | DX: M25.511 Pain in right shoulder (principal) ==

== ENCOUNTER 2025-06-23 13:16 | Emergency (ER) | payer MEDICARE, OTHER ==
[~2025-06-23] VITALS: Ht 167.6 cm; Wt 69.4 kg
[~2025-06-23 13:16] MED LIST changes: -IBUP-1022 PO; +IBUP600T42 PO
[2025-06-23 17:46] VITALS: TEMP 98.5
[2025-06-23 17:51] LABS: BASO # 0.1 10^3/uL (0.0-0.2); BASO % 0.6 % (0.0-1.0); EOS # 0.1 10^3/uL (0.0-0.5); EOS % 1.3 % (0.0-3.0); LYMPH # 2.6 10^3/uL (1.5-5.0); LYMPH % 32.7 % (24.0-44.0); MONO # 0.6 10^3/uL (0.0-0.8); MONO % 8.0 % (2.0-8.0); NEUTROPHILS # 4.5 10^3/uL (1.5-8.5); NEUTROPHILS % 57.1 % (36.0-66.0); PLATELET COUNT, AUTOMATED 296 10^3/uL (150-450)
[2025-06-23] MEDS: KETOROLAC 30 MG/ML 1 ML VIAL IV ONE (17:52)
[2025-06-23 18:22] LABS: CK-MB VALUE MASS 1.5 NG/ML (<3.6)
[2025-06-23 18:24] LABS: CALCIUM LEVEL 9.6 MG/DL (8.3-10.6); CARBON DIOXIDE LEVEL 28.0 MMOL/L (20-31); CHLORIDE LEVEL 105.0 MMOL/L (98-107); CPK CREATINE PHOSPHOKINASE 93.0 U/L (34-145); CREATININE FOR GFR 0.73 MG/DL (0.55-1.30); GLOMERULAR FILTRATION RATE 87.3 (>39); MB/CK RELATIVE INDEX 1.61 (< OR =4); POTASSIUM SERUM 4.8 MMOL/L (3.5-5.1); SODIUM LEVEL 142.0 MMOL/L (136-145)
[2025-06-23 18:46] VITALS: O2SAT 99
[2025-06-23] MEDS: NS 500 ML IV ONE (18:53)
[2025-06-23 19:23] LABS: CK-MB VALUE MASS 1.0 NG/ML (<3.6)
[2025-06-23 19:27] LABS: CPK CREATINE PHOSPHOKINASE 86.0 U/L (34-145); MB/CK RELATIVE INDEX 1.16 (< OR =4)
[2025-06-23] MEDS: ACETAMINOPHEN 500 MG TAB PO ONE (21:01)
[2025-06-23 22:29] VITALS: BP 152/66
== END 2025-06-23 22:30 | disposition home or self-care (01) ==
LOC: M ED 13:16
DX: I10 Essential (primary) hypertension (principal); M19.90 Unspecified osteoarthritis, unspecified site; Z79.899 Other long term (current) drug therapy
CPT/HCPCS: 36415; 71045; 80048; 82550; 82553; 84484; 85025; 93005; 96374; 99285; J1885

== ENCOUNTER → 2025-07-28 | Outpatient (CLI) | payer MEDICARE, OTHER ==
[~2025-07-28] MED LIST changes: +PROHANCE 279.3MG/ML 15ML VIAL ONE
== END ==
LOC: M PLAIMG 08:53
PROVIDERS: ATTEND Internal Medicine
DX: H53.8 Other visual disturbances (principal); R42 Dizziness and giddiness; I67.1 Cerebral aneurysm, nonruptured
CPT/HCPCS: 70544; 70553; A9576